=== PATIENT | male | born 2000 | race Caucasian/White ===

== ENCOUNTER 2020-04-17 18:30 | Emergency (ER) | payer OTHER ==
[2020-04-17 18:40] VITALS: BP 130/80
[2020-04-17] MEDS ORDERED: LIDOCAINE 1% INJ-PF (10 MG/ML) 30 ML SDV INJ ONE (18:48)
--- NOTE | 2020-04-17 18:48 | ER Document Report ---
HPI - HPI Patient complains to provider of: right finger lacertion Time Seen by Provider: 04/17/20 18:41 Pain Level: 1 Context: 19-year-old male presents to the emergency room with lacerations to his right middle and ring finger dorsal aspect. Patient states he was attempting to open a beer bottle with a knife when he cut his hand. Tetanus is up-to-date. Patient is right-handed. Bleeding is persistent. Associated Symptoms: None Exacerbated by: Movement Relieved by: Remaining still Similar symptoms previously: No Recently seen / treated by doctor: No - ROS Systems Reviewed and Negative: Yes All other systems reviewed and negative - NEURO Neurology: DENIES: Weakness - MUSCULOSKELETAL Musculoskeletal: REPORTS: Extremity pain - DERM Skin Color: Erythema Skin Problems: Laceration Past Medical History - General Information source: Patient - Social History Smoking Status: Never Smoker Chew tobacco use (# tins/day): No Frequency of alcohol use: Social Drug Abuse: None Family History: Reviewed & Not Pertinent Vertical Provider Document - CONSTITUTIONAL Agree With Documented VS: Yes Exam Limitations: No Limitations General Appearance: Mild Distress - INFECTION CONTROL TRAVEL OUTSIDE OF THE [place] IN LAST 30 DAYS: No - HEENT HEENT: Atraumatic, Normocephalic - NECK Neck: Normal Inspection, Supple, Thyroid Normal - RESPIRATORY Respiratory: Breath Sounds Normal, No Respiratory Distress, Chest Non-Tender - CARDIOVASCULAR Cardiovascular: Regular Rate, Regular Rhythm, No Murmur - MUSCULOSKELETAL/EXTREMETIES Musculoskeletal/Extremeties: FROM, Tender - Tenderness on palpation to the dorsal aspect of the right middle and third fingers over the PIP joints. He does have full range of motion with flexion and extension to all fingers on the right hand. - NEURO Level of Consciousness: Awake, Alert, Appropriate Motor/Sensory: No Motor Deficit, No Sensory Deficit Notes: Positive right radial pulse. Capillary refill less than 3 seconds. - DERM Integumentary: Warm, Dry, Laceration - Patient has a 3 cm laceration to the right ring finger over the PIP joint. Bleeding is controlled. No obvious tendon injury noted. Able to flex and extend finger without difficulty. Right middle finger over the PIP joint is a 4 cm laceration. Tendon is visible but is not injured. Patient able to flex and extend finger without any difficulty. He is neurovascularly intact. Course - Re-evaluation Re-evalutation: 04/17/20 19:57 Wounds were cleansed and sutured as documented. X-ray results were reviewed with the patient. Dressing applied by nursing staff as documented. Keep wound clean and dry. Can remove dressing in 24 hours. Given wound care instructions. Sutures out 8 to 10 days. Tylenol as needed for pain. Patient was given strict return to the emergency room guidelines. Return for any new or worsening symptoms. All questions were answered. Patient verbalized understanding and agrees with plan of care. 04/17/20 21:36 - Vital Signs Vital signs: Temp Pulse Resp BP Pulse Ox 97.9 F 88 16 130/80 H 99 04/17/20 18:39 04/17/20 18:39 04/17/20 18:39 04/17/20 18:39 04/17/20 18:39 - Diagnostic Test Radiology reviewed: Reports reviewed Procedures - Laceration/Wound Repair Right Finger 3rd digit Time completed: 19:49 Wound length (cm): 4 Wound's Depth, Shape: Flap, Other - Tendon was visible but not injured Laceration pre-procedure: Sterile PPE donned, Sterile drapes applied, Shur-Clens applied Anesthetic type: 1% Lidocaine Volume Anesthetic (mLs): 4 Wound explored: Clean, No foreign body removed Irrigated w/ Saline (mLs): 20 Wound Repaired With: Sutures Suture Size/Type: 5:0, Ethilon Number of Sutures: 7 Layer Closure?: No Deep Layer Suture Size/Type: 5:0 Post-procedure wound care: Sterile dressing applied Post-procedure NV exam normal: Yes Complications: No - Additional Procedures laceration Time performed: 19:54 Notes: 04/17/20 19:54 Right 4th digit 3cm laceration linear no tendon injury, tendon not visualized Sterile PPE drapes applied Cleansed with Shur-Clens Irrigated with 20 cc of normal saline Sutured with 5-0 Ethilon #5 sutures. Sterile dressing applied Patient tolerated well 04/17/20 19:57 Discharge - Discharge Clinical Impression: Laceration of right middle finger w/o foreign body w/o damage to nail Qualifiers: Encounter type: initial encounter Qualified Code(s): S61.212A - Laceration without foreign body of right middle finger without damage to nail, initial encounter Laceration of right ring finger w/o foreign body w/o damage to nail Qualifiers: Encounter type: initial encounter Qualified Code(s): S61.214A - Laceration without foreign body of right ring finger without damage to nail, initial encounter Condition: Stable Disposition: HOME, SELF-CARE Instructions: Laceration Care ([facility]) Additional Instructions: Keep wound clean and dry. Sutures out 8 to 10 days. Tylenol as needed for pain. Return to the emergency room for any new or worsening symptoms.
--- NOTE | 2020-04-17 19:14 | RADIOLOGY REPORT (SQ) ---
EXAM DESCRIPTION: HAND RIGHT 3 VIEWS IMAGES COMPLETED DATE/TIME: 04/17/2020 5:59 pm REASON FOR STUDY: laceration 3rd digit COMPARISON: None. EXAM PARAMETERS: NUMBER OF VIEWS: Three views. TECHNIQUE: AP, lateral and oblique radiographic images acquired of the right hand. LIMITATIONS: None. FINDINGS: MINERALIZATION: Normal. BONES: No acute fracture or dislocation. No worrisome bone lesions. JOINTS: No effusions. SOFT TISSUES: No soft tissue swelling. No foreign body. OTHER: No other significant finding. IMPRESSION: NEGATIVE STUDY OF THE RIGHT HAND. NO RADIOGRAPHIC EVIDENCE OF ACUTE INJURY. TECHNICAL DOCUMENTATION: JOB ID: [id number] [employer]- All Rights Reserved Reading location - IP/workstation name: [email or web address]
== END 2020-04-17 20:41 | disposition home or self-care (01) ==
LOC: ER 18:30
DX: S61.212A Laceration without foreign body of right middle finger without damage to nail, initial encounter (principal); S61.214A Laceration without foreign body of right ring finger without damage to nail, initial encounter; W26.0XXA Contact with knife, initial encounter; Y93.89 Activity, other specified
CPT/HCPCS: 99283; 73130; 12002; J3490